=== PATIENT | male | born 1995 | race Caucasian/White ===

== ENCOUNTER 2018-03-13 19:30 | Emergency (ER) | payer OTHER ==
[~2018-03-13] VITALS: Ht 193 cm; Wt 117.9 kg
[2018-03-13] MEDS ORDERED: ROBAXIN 750 MG750 M1 PO (21:42)
[2018-03-13 21:59] VITALS: BP 158/104
== END 2018-03-13 21:58 | disposition home or self-care (01) ==
LOC: M.ERS 19:30
DX: S01.01XA Laceration without foreign body of scalp, initial encounter (principal); S60.222A Contusion of left hand, initial encounter; M79.631 Pain in right forearm; M54.6 Pain in thoracic spine; V49.49XA Driver injured in collision with other motor vehicles in traffic accident, initial encounter; Y93.89 Activity, other specified; Y92.89 Other specified places as the place of occurrence of the external cause; Y99.8 Other external cause status